=== PATIENT | female | born 1930 | race Caucasian/White ===

== ENCOUNTER → 2016-09-27 | Outpatient (CLI) | payer MEDICARE, BC ==
[~2016-09-27] MED LIST: ASPIRIN PO; ASPIRIN81 M1 PO; ASPIRIN81 M2 PO; AZASITE2.5 ML OP; BONIVA150 MG PO; CALCIUM + D 6001 TA1 PO; CALCIUM 500 + D1 TAB PO; CLEOCIN HCL150 MG PO; COUMADIN PO; COUMADIN5 MG PO; GLUCOSAMINE; GLUCOSAMINE CHONDRO; K-DUR10 MEQ PO; LASIX20 MG PO; LOPRESSOR PO; MICRO-K10 MEQ PO; NASACORT AQ16.5 GM; NORVASC PO; OCUTABS TABLET1 TAB PO; SIMVASTATIN10 MG PO; TOPROL XL 50 MG50 MG PO; TOPROL XL PO; VERAPAMIL HCL120 M1 PO; VITAMIN C PO; ZESTORETIC 20/21 TAB PO; ZINC SULFATE PO; ZOCOR PO; ZOFRAN PO; [UNRECOGNIZED DRUG - OTHER]
--- NOTE | ~2016-09-27 | US6 ---
[facility] A Service of [facility] RADIOLOGY TEXT RESULTS PATIENT: [facility]ULLOCK [id number] : 34 UNIT #: [id number] AGE: [address]: Terra Abdi MD SEX: F ORDER DR: [id number] [address] [id number] O MR#: [id number] Acc #: [id number] NAME: MATTIE BULLOCK : 1930 SEX: F STUDY DATE/TIME: 09/27/2016 10:10 UNIT: [facility] ROOM: STUDY DESCRIPTION: US Abdominal Limited Attending Physician: Terra Abdi M.D. Ordering Physician: Terra Abdi M.D. Primary Care Physician: Mckay Canales M.D. MEDICAL IMAGING REPORT This report is preliminary unless electronic signature is present. EXAM Abdominal ultrasound, complete, 09/27/2016. HISTORY Abnormally elevated liver enzymes. Elevated transaminase levels. FINDINGS The liver is homogeneous in echotexture and demonstrates no cystic or solid mass lesions. The intra- and extrahepatic bile ducts are not dilated. The gallbladder contains multiple shadowing gallstones, but there is no evidence of gallbladder wall thickening or pericholecystic fluid. The common duct measures 5 mm. The pancreas and spleen are normal. The spleen measures 9.7 cm in greatest diameter. The visualized portions of the abdominal aorta and inferior vena cava are within normal limits. The right kidney is normal. The left kidney is poorly visualized. IMPRESSION 1. Limited exam, as the left kidney was poorly visualized. 2. Cholelithiasis. Dictated by... Jason Golden M.D. THIS IS AN ELECTRONICALLY VERIFIED REPORT Jason Golden M.D. at 09/30/2016 10:35 AM KEVAN/shama TD: 09/27/2016 18:13 JOB #: [id number] [facility] A Service of [facility] RADIOLOGY TEXT RESULTS PATIENT: MATTIE BULLOCK LOCATION: [facility] #: [id number] : 34 UNIT #: [id number] AGE: [address]: Terra Abdi MD SEX: F ORDER DR: MEDICAL IMAGING REPORT
== END | disposition home or self-care (01) ==
LOC: SGUS 09:34
DX: R74.0 Nonspecific elevation of levels of transaminase and lactic acid dehydrogenase [LDH] (principal); K80.20 Calculus of gallbladder without cholecystitis without obstruction
CPT/HCPCS: 76705